=== PATIENT | female | born 1980 | race Caucasian/White ===

== ENCOUNTER → 2022-11-01 | Outpatient (CLI) | payer OTHER, SELFPAY ==
[2022-11-01 09:49] LABS: Progesterone Level 0.47 ng/mL (See Comment)
[2022-11-01 10:09] LABS: Estradiol 68.8 pg/mL; Luteinizing Hormone 0.8 mIU/mL; Thyroid Stim Hormone (TSH) 0.67 uIU/mL (0.358-3.74)
== END | disposition home or self-care (01) ==
PROVIDERS: Visit Provider Obstetrics & Gynecology Reproductive Endocrinology
DX: Z31.41 Encounter for fertility testing (principal)
CPT/HCPCS: 36415; 82670; 83002; 84144; 84443

== ENCOUNTER → 2022-11-03 | Outpatient (CLI) | payer OTHER, SELFPAY ==
[2022-11-03 10:25] LABS: Progesterone Level 0.55 ng/mL (See Comment)
[2022-11-03 10:29] LABS: Estradiol 178.8 pg/mL; Luteinizing Hormone 0.8 mIU/mL; Thyroid Stim Hormone (TSH) 1.02 uIU/mL (0.358-3.74)
== END | disposition home or self-care (01) ==
LOC: WOBLAB 08:53
PROVIDERS: Visit Provider Obstetrics & Gynecology Reproductive Endocrinology
DX: Z31.41 Encounter for fertility testing (principal)
CPT/HCPCS: 36415; 82670; 83002; 84144; 84443

== ENCOUNTER → 2022-11-05 | Outpatient (CLI) | payer OTHER, SELFPAY ==
[2022-11-05 10:12] LABS: Progesterone Level 0.62 ng/mL (See Comment)
[2022-11-05 10:13] LABS: Luteinizing Hormone 1.8 mIU/mL
== END | disposition home or self-care (01) ==
LOC: WOBLAB 08:55
PROVIDERS: Visit Provider Obstetrics & Gynecology Reproductive Endocrinology
DX: Z31.83 Encounter for assisted reproductive fertility procedure cycle (principal)
CPT/HCPCS: 36415; 82670; 83002; 84144